=== PATIENT | female | born 1955 | race Caucasian/White ===

== ENCOUNTER 2017-01-14 10:22 | Observation (INO) | payer OTHER, MEDICAID ==
[2017-01-14 10:25] VITALS: BMI 37.5
[2017-01-14] MEDS ORDERED: DEMEROL INJ IVP ONE ×2 (10:41→11:53)
[2017-01-14] MEDS ORDERED: ZOFRAN INJ 4 MG VIAL IVP ONE (10:42)
--- NOTE | 2017-01-14 10:48 | DR.CP ---
HPI - Time Seen Time seen: 10:43 - PCP Primary Care Physician: JAX - Complaint Chief Complaint Doctor Comments: Patient complains of xiphoid chest pain with shortness of breath for the past 24 hours getting worst today. Patient states she has CAD and had stents placed 2005 and is a patient of Dr. Palafox in [place], [place]. states she has Demerol 50mg at home and Plavix 75mg but she did not take any today. 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 She has a cough and has nausea but denies fever, chills, vomiting of diarrhea. She denies headache or dizziness. Chief Complaint:: PT. C/O CHEST PAIN THAT BEGAN YESTERDAY. PT. STATES IT RADIATES TO LEFT SHOULDER BLADE AND LEFT ARM. PT. ALSO C/O SHORTNESS OF BREATH. PT. DESCRIBES THE PAIN HEAVINESS IN NATURE. - Reviewed Nurses Notes Review: Yes - Source History Provided: Patient - Mode of Arrival Mode of Arrival: Ambulatory - Timing Onset of Chief Complaint: 01/13/17 Came on: Gradually Pain: Present Now - Duration Duration: Intermittent How lon Duration: Hours - Location Location of Chest Pain: Chest Chest Pain Radiation Location: None - Context Onset: At rest Cardiac Risk Factors: Smoker PE Risk Factors: None History of: Similar pain in the past, Angioplasty Prehospital Care: None - Quality Quality: Sharp, Pressure like, Crushing - Severity Severity: Moderate - Modifying Factors Worsens: Breathing, Movement Impoves: Nothing - Associated Signs and Symptoms Associated Signs and Symptoms: Shortness of Breath. denies: None, Palpitations , Diaphoresis, Abdominal Pain, Nausea/Vomiting, Calf Pain/Swelling, Chest Rash, Other PMH - PMH Past Medical History: Yes Past Medical History: CHF, COPD, Coronary Artery Disease, Dyslipidemia, GERD, Hypertension, PUD Past Surgical History: Yes Surgical History: Cholecystectomy, Hysterectomy, Joint Replacement, Ortho Surgery - Family History History of Family Medical Conditions: Yes Family Medical History: Diabetes Mellitus, Cancer, [place], Coronary Artery Disease, Sudden Cardiac , Hypertension - Social History Does patient currently use any type of tobacco product: No Have you used tobacco products in the last 12 months: No Type of Tobacco Use: None Does any household member use tobacco: No Alcohol Use: Rarely Do you use any recreational Drugs:: No Lives With: Spouse Lives Where: Home - infectious screening In the last 2 months have you had wt loss of >10#?: NO Have you had fever, night sweats or hemotysis?: No Have you traveled outside the country in the last 6 months?: No Isolation: Standard ROS - Review of Systems Constitutional: No Symptoms Reported. negative: See HPI, Chills, Diaphoresis, Fever, Malaise, Weakness, Irritable, Fatigue, Loss of Appetite, Other Eyes: No Symptoms Reported ENTM: No Symptoms Reported. negative: See HPI, Ear Pain, Ear Discharge, Pulling on Ears, Hearing Loss, Nose Pain, Nose Discharge, Epistaxis, Nose Congestion, Mouth Pain, Mouth Swelling, Loose Teeth, Drooling, Throat Pain, Throat Swelling, Ear Foreign Body Respiratoy: No Symptoms Reported, Non-Productive Cough, Short of Breath. negative: See HPI, Productive Cough, Moist Cough, Dry Cough, Hacking Cough, Barking Cough, Brassy Cough, Orthopnea, Stridor, Wheezing, Hemoptysis, Other Cardiovascular: No Symptoms Reported, Chest Pain. negative: See HPI, Edema, Palpitations, Syncope, Cyanosis, Skin Mottling, Other Gastrointestinal/Abdominal: No Symptoms Reported, Nausea. negative: See HPI, Abdominal Pain, Constipation, Diarrhea, Vomiting, Food Intolerance, Other Genitourinary: No Symptoms Reported. negative: See HPI, Discharge, Dysuria, Frequency, Hematuria, Pain, Bleeding, Other Neurological: No Symptoms Reported. negative: See HPI, Anxiety, Depressed, Emotional Problems, Headache, Numbness, Paresthesia, Pre-existing Deficit, Seizure, Tingling, Tremors, Weakness, Dizziness, Problems Walking, Speech Problem, Other Musculoskeletal: No Symptoms Reported Integumentary: No Symptoms Reported Hematologic/Lymphatic: No Symptoms Reported Endocrine: No Symptoms Reported Psychiatric: No Symptoms Reported PE - Vitals Vitals: Temperature 97.7 F Pulse Rate [Apical] 76 Pulse Rate 85 Respiratory Rate 17 Blood Pressure [Right Arm] 124/82 Blood Pressure 139/70 O2 Sat by Pulse Oximetry 99 - General Limitations: No Limitations General Appearance: Alert, In Distress (moderate) - Head Head Exam: Normal Inspection, Atraumatic, Normocephalic - Eyes Eye exam: Normal Appearance, PERRL, EOMI. negative: Scleral Icterus, Conjunctival Injection, Nystagmus, Miosis, Mydrasis, Periorbital Swelling, Periorbital Tenderness, Other - ENT ENT Exam: Normal Exam, Normal Oropharynx, Normal External Ear Exam, Mucous Membranes Moist, TM's Normal Bilaterally - Chest Chest Inspection: Normal Inspection, Symmetric Chest Wall Rise - Respiratory Respiratory Exam: Normal Lung Sounds Bilat. negative: Accessory Muscle Use, Chest Wall Tenderness, Prolonged Expiratory Phase, Respiratory Distress, Stridor , Other Respiratory Exam: Bilateral Clear to Auscultation - Cardiovascular Cardiovascular Exam: Regular Rate, Normal Rhythm, Normal Heart Sounds. negative : Bradycardia, Tachycardia, Irregular Rhythm, Systolic Murmur, Diastolic Murmur , Rubs, Gallop, Clicks, JVD, +S1, +S2, +S3, +S4, Other Pulse: Normal Edema: Normal - Abdominal Exam Abdominal Exam: Normal Inspection, Normal Bowel Sounds, Soft. negative: Distention, Tenderness, Guarding, Rebound, Rigidity, Dimnished Bowel Sounds, Hyperactive Bowel Sounds, Hypoactive Bowel Sounds, Organomegaly, Trauma, Incision, Ascites, Mass, Bruit, Pulsatile Mass, Hernia, Other Abdominal Tenderness: negative: RUQ, RLQ, LUQ, LLQ, Epigastrium, Suprapubic, Diffuse, Mild, Moderate, Severe, Other - Extremities Extremities Exam: Normal Inspection, Full ROM, Normal Capillary Refill. negative: Tenderness, Edema, Joint Swelling, Calf Tenderness, Other - Back Back Exam: Normal Inspection, Full ROM. negative: Tenderness, (R) CVA Tenderness, (L) CVA Tenderness, Muscle Spasm, Paraspinal Tenderness, Vertebral Tenderness, Rashes, (R) Sciatic Notch Tenderness, (L) Sciatic Notch Tendern, (R ) Straight Leg Raise, (L) Straight Leg Raise, Other - Neurologic Neurological Exam: Alert, Oriented X3, CN II-XII Intact, Normal Gait, Reflexes Normal. negative: Motor Sensory Deficit, Other - Psychiatric Psychiatric Exam: Normal Affect, Normal Mood. negative: Depressed, Agitated, Anxious, Flat Affect, Manic, Homicidal Ideation, Suicidal Ideation, Other - Skin Skin Exam: Warm, Dry, Intact, Normal Color. negative: Rash, Cyanosis, Diaphoresis, Erythema, Pallor, Mottled, Other Course - Consultation Called: 12:07 Call Returned: 12:07 (Dr. Pope to admit) - Education/Counseling Education/Counseling: Patient, Family Educated On: Treatment, Diagnosis, Prognosis, Needs for Follow Up ROR - Labs Reviewed Laboratory Results Reviewed?: Yes (All labs and x-ray results reviewed and discussed with patient) Result Diagrams: 01/14/17 11:02 01/14/17 11:02 Laboratory: WBC 7.7 X10^3/uL (3.6-10.0) 01/14/17 11:02 RBC 5.15 X10^6/uL (3.5-5.4) 01/14/17 11:02 Hgb 13.9 g/dL (12.0-16.0) 01/14/17 11:02 Hct 41.9 % (36.0-47.0) 01/14/17 11:02 MCV 81.4 fL (80.0-100.0) 01/14/17 11:02 MCH 26.9 pg (27.0-34.0) L 01/14/17 11:02 MCHC 33.1 g/dL (33.0-35.0) 01/14/17 11:02 RDW 13.9 % (11.6-16.5) 01/14/17 11:02 Plt Count 160 X10^3/uL (150.0-450.0) 01/14/17 11:02 Plt Count Comment Adequate (ADEQUATE) 01/14/17 11:02 MPV 9.4 fL (7.4-11.0) 01/14/17 11:02 Neut % 54.9 % (42.0-75.0) 01/14/17 11:02 Lymph % 33.6 % (21.0-51.0) 01/14/17 11:02 [place] % 7.2 % (0.0-13.0) 01/14/17 11:02 Eos % 1.6 % (0.9-2.9) 01/14/17 11:02 Baso % 2.7 % (0.2-1.0) H 01/14/17 11:02 Neut # 4.2 x10^3/uL (2.2-4.8) 01/14/17 11:02 Lymph # 2.6 X10^3/uL (1.3-2.9) 01/14/17 11:02 [place] # 0.6 x10^3/uL (0.3-0.8) 01/14/17 11:02 Eos # 0.1 x10^3/uL (0.0-0.2) 01/14/17 11:02 Baso # 0.2 X10^3/uL (0.0-0.1) H 01/14/17 11:02 Absolute Nucleated RBC 0.1 /100WBC 01/14/17 11:02 Total Counted 100 01/14/17 11:02 Neutrophils % (Manual) 58 % (39-76) 01/14/17 11:02 Band Neutrophils % 2 % (0-10) 01/14/17 11:02 Lymphocytes % (Manual) 27 % (13-43) 01/14/17 11:02 Monocytes % (Manual) 9 % (4-9) 01/14/17 11:02 Eosinophils % (Manual) 2 % (0-6) 01/14/17 11:02 Metamyelocytes % 2 01/14/17 11:02 Plt Morphology Comment Normal (NORMAL) 01/14/17 11:02 RBC Morphology Normal (NORMAL) 01/14/17 11:02 INR Target Range - 01/14/17 11:02 INR 1.03 (0.8-1.3) 01/14/17 11:02 PTT 26.2 SECONDS (22.9-36.5) 01/14/17 11:02 PTT Comment - 01/14/17 11:02 D-Dimer 403 ng/mL (0-400) H* 01/14/17 11:02 Sodium 143 mmol/L (136-145) 01/14/17 11:02 Corrected Sodium TNP 01/14/17 11:02 Potassium 3.8 mmol/L (3.5-5.1) 01/14/17 11:02 Chloride 109 mmol/L (98-107) H 01/14/17 11:02 Carbon Dioxide 29.5 mmol/L (21-32) 01/14/17 11:02 BUN 7 mg/dL (7-18) 01/14/17 11:02 Creatinine 0.93 mg/dL (0.55-1.02) 01/14/17 11:02 Est GFR (MDRD) Af Amer > 60 (>60) 01/14/17 11:02 Est GFR (MDRD) Non-Af > 60 (>60) 01/14/17 11:02 Glucose 93 mg/dL (65-99) 01/14/17 11:02 Calcium 8.4 mg/dL (8.5-10.1) L 01/14/17 11:02 Corrected Calcium 9.0 mg/dL (8.5-10.1) 01/14/17 11:02 Magnesium 1.9 mg/dL (1.7-2.9) 01/14/17 11:02 Total Bilirubin 0.30 mg/dL (0.2-1.0) 01/14/17 11:02 AST 19 Units/L (15-37) 01/14/17 11:02 ALT 25 Units/L (12-78) 01/14/17 11:02 Alkaline Phosphatase 86 Units/L (46-116) 01/14/17 11:02 Creatine Kinase 70 Units/L (26-192) 01/14/17 11:02 CK-MB (CK-2) < 1.0 ng/mL (0-4.0) 01/14/17 11:02 CK/CKMB % Calc 1.4 % (<4) 01/14/17 11:02 Troponin I < 0.02 ng/mL (0-1.5) 01/14/17 11:02 Total Protein 6.7 g/dL (6.4-8.2) 01/14/17 11:02 Albumin 3.2 g/dL (3.4-5.0) L 01/14/17 11:02 Globulin 3.5 g/dL (2.5-4.5) 01/14/17 11:02 Albumin/Globulin Ratio 0.9 Ratio (1.1-2.1) L 01/14/17 11:02 - XRAY XRAY Interpreted by: Self (CXR: No acute cardiopulmonary changes noted) - EKG Rate: 77 [place]: Normal Rhythm: NSR Block: None Hypertrophy: None ST: Old, Ant, Infarct - Diagnosis Discharge Problem: Chest pain, rule out acute myocardial infarction, Coronary artery disease, History of AK (myocardial infarction), angina, COPD (chronic obstructive pulmonary disease) - Discharge Plan Disposition: ADMITTED INPATIENT Condition: Stable - Follow ups/Referrals Follow ups/Referrals: IGNACIO CAMARA [Primary Care Provider] - 3 days - Instructions
[2017-01-14] MEDS ORDERED: DEMEROL INJ ONE ×2 (10:54→11:58)
[2017-01-14] MEDS ORDERED: ZOFRAN INJ 4 MG VIAL ONE (10:54)
[2017-01-14] MEDS: NS 1000 ML 1,000 ML IV SCH ×2 (10:56→23:18)
[2017-01-14 11:12] LABS: BASOPHILS # (AUTO) 0.2 X10^3/uL (0.0-0.1); BASOPHILS % (AUTO) 2.7 % (0.2-1.0); EOSINOPHILS # (AUTO) 0.1 x10^3/uL (0.0-0.2); EOSINOPHILS % (AUTO) 1.6 % (0.9-2.9); HEMATOCRIT 41.9 % (36.0-47.0); HEMOGLOBIN 13.9 g/dL (12.0-16.0); LYMPHOCYTES # (AUTO) 2.6 X10^3/uL (1.3-2.9); LYMPHOCYTES % (AUTO) 33.6 % (21.0-51.0); MEAN CORPUSCULAR HEMOGLOBIN 26.9 pg (27.0-34.0); MEAN CORPUSCULAR HGB CONC 33.1 g/dL (33.0-35.0); MEAN CORPUSCULAR VOLUME 81.4 fL (80.0-100.0); MEAN PLATELET VOLUME 9.4 fL (7.4-11.0); MONOCYTES # (AUTO) 0.6 x10^3/uL (0.3-0.8); MONOCYTES % (AUTO) 7.2 % (0.0-13.0); NEUTROPHILS # (AUTO) 4.2 x10^3/uL (2.2-4.8); NEUTROPHILS % (AUTO) 54.9 % (42.0-75.0); PLATELET COUNT 160 X10^3/uL (150.0-450.0); RED BLOOD COUNT 5.15 X10^6/uL (3.5-5.4); RED CELL DISTRIBUTION WIDTH 13.9 % (11.6-16.5); WHITE BLOOD COUNT 7.7 X10^3/uL (3.6-10.0)
[2017-01-14 11:28] LABS: BAND NEUTROPHILS % 2 % (0-10); METAMYELOCYTES % 2; PLATELET MORPHOLOGY COMMENT NORMAL (NORMAL)
[2017-01-14 11:29] LABS: BLOOD UREA NITROGEN 7 mg/dL (7-18); CALCIUM 8.4 mg/dL (8.5-10.1); CARBON DIOXIDE 29.5 mmol/L (21-32); CHLORIDE 109 mmol/L (98-107); CREATININE 0.93 mg/dL (0.55-1.02); GLUCOSE 93 mg/dL (65-99); SODIUM 143 mmol/L (136-145); TROPONIN I < 0.02 ng/mL (0-1.5); eGFR BLACK RACES > 60 (>60); eGFR NON BLACK RACES > 60 (>60)
[2017-01-14 11:33] LABS: ALANINE AMINOTRANSFERASE 25 Units/L (12-78); ALBUMIN 3.2 g/dL (3.4-5.0); ALKALINE PHOSPHATASE 86 Units/L (46-116); ASPARTATE AMINO TRANSFERASE 19 Units/L (15-37); CREATINE KINASE 70 Units/L (26-192); CREATINE KINASE MB < 1.0 ng/mL (0-4.0); MAGNESIUM 1.9 mg/dL (1.7-2.9); TOTAL PROTEIN 6.7 g/dL (6.4-8.2)
[2017-01-14 11:36] LABS: CKMB % 1.4 % (<4)
[2017-01-14 11:48] LABS: D DIMER 403 ng/mL (0-400)
[2017-01-14] MEDS ORDERED: VENTOLIN or PROAIR HFA IN PRN (12:25)
[2017-01-14] MEDS ORDERED: PATIENT'S HOME MEDICATION (Albuterol Sulfate 2 PUFF) INH SCH (13:00)
--- NOTE | 2017-01-14 13:38 | RAD ---
HISTORY: Chest pain Study: Chest one view Comparison: April 27, 2016, April 25, 2016 Findings: The trachea is midline. The cardiac silhouette is unremarkable. The lungs are clear without focal infiltrate or effusion. The bony thorax is unremarkable. There is a port present on the left. IMPRESSION: 1. No acute cardiopulmonary disease. Reported By:
--- NOTE | 2017-01-14 15:16 | DR.H&P ---
H&P - History & Physical for Day of: H&P Date: 01/14/17 - Chief Complaint Chief Complaint: CHEST PAIN AND SHORTNESS OF BREATH - Allergies Allergies/Adverse Reactions: Allergies Allergy/AdvReac Type Severity Reaction Status Date / Time acetaminophen [From Esgic] Allergy Verified 01/14/17 14:10 amitriptyline Allergy Verified 01/14/17 14:10 amoxicillin [From Augmentin] Allergy Verified 01/14/17 14:10 atenolol [From Tenormin] Allergy Verified 01/14/17 14:10 bacitracin Allergy Verified 01/14/17 14:10 [From Neosporin ([id number])] butalbital [From Esgic] Allergy Verified 01/14/17 14:10 caffeine [From Esgic] Allergy Verified 01/14/17 14:10 cefadroxil [From Duricef] Allergy Verified 01/14/17 14:10 celecoxib [From Celebrex] Allergy Verified 01/14/17 14:10 cephalexin Allergy Verified 01/14/17 14:10 chlordiazepoxide Allergy Verified 01/14/17 14:10 [From Librax (with clidinium)] clavulanic acid Allergy Verified 01/14/17 14:10 [From Augmentin] clidinium Allergy Verified 01/14/17 14:10 [From Librax (with clidinium)] codeine Allergy Verified 01/14/17 14:10 dexpanthenol [From Ilopan] Allergy Verified 01/14/17 14:10 duloxetine [From Cymbalta] Allergy Verified 01/14/17 14:10 enoxaparin [From Lovenox] Allergy Verified 01/14/17 14:10 erythromycin base Allergy Verified 01/14/17 14:10 esomeprazole [From Nexium] Allergy Verified 01/14/17 14:10 eucalyptus Allergy Verified 01/14/17 14:10 fenoprofen Allergy Verified 01/14/17 14:10 fentanyl Allergy Verified 01/14/17 14:10 hydromorphone [From Dilaudid] Allergy Verified 01/14/17 14:10 ibuprofen [From Motrin] Allergy Verified 01/14/17 14:10 Iodine and Iodide Containing Allergy Verified 01/14/17 14:10 Produc ketorolac [From Toradol] Allergy Verified 01/14/17 14:10 lansoprazole [From Prevacid] Allergy Verified 01/14/17 14:10 latex Allergy Verified 01/14/17 14:10 levofloxacin [From Levaquin] Allergy Verified 01/14/17 14:10 meloxicam Allergy Verified 01/14/17 14:10 morphine Allergy Verified 01/14/17 14:10 nabumetone Allergy Verified 01/14/17 14:10 neomycin Allergy Verified 01/14/17 14:10 [From Neosporin ([id number])] omeprazole [From Prilosec] Allergy Verified 01/14/17 14:10 pantoprazole [From Protonix] Allergy Verified 01/14/17 14:10 paroxetine [From Paxil] Allergy Verified 01/14/17 14:10 penicillin G Allergy Verified 01/14/17 14:10 polymyxin B Allergy Verified 01/14/17 14:10 [From Neosporin ([id number])] propranolol Allergy Verified 01/14/17 14:10 rofecoxib [From Vioxx] Allergy Verified 01/14/17 14:10 sucralfate [From Carafate] Allergy Verified 01/14/17 14:10 terbinafine [From Lamisil] Allergy Verified 01/14/17 14:10 tigecycline [From Tygacil] Allergy Verified 01/14/17 14:10 topiramate [From Topamax] Allergy Verified 01/14/17 14:10 LODINE Allergy Uncoded 01/14/17 14:10 MAOLATE Allergy Uncoded 01/14/17 14:10 SULFAME Allergy Uncoded 01/14/17 14:10 - History of Present Illness History of Present Illness: MS. ALFREDO IS A 61 YEAR OLD FEMALE PATIENT OF . SHE PRESENTED TO THE ER WITH COMPLAINTS OF CHEST PAIN AND SHORTNESS OF BREATH FOR 24 HOURS PRIOR TO ARRIVING TO ER. PATIENT STATED THAT HER CHEST PAIN RADIATED TO THE LEFT ARM AND SHOULDER. PAIN WAS DESCRIBED PRESSURE AND SHARP. PATIENT ALSO COMPLAINED OF COUGH AND NAUSEA, BUT DENIED FEVER, CHILLS, VOMITING, OR DIARRHEA. ON EXAMINATION, PATIENT APPEARED TO BE IN MODERATE DISTRESS. ON ARRIVAL TO ER, VITALS WERE 97.7, 85, 17, 95, 139/70. LABS WERE OBTAINED AND WNL WITH EXCEPTION OF A D-DIMER OF 403, CHLORIDE 109, CALCIUM 8.4, ALBUMIN 3.2. CARDIAC PROFILE, EKG, AND CHEST XRAY WERE WNL. DUE TO PATIENT S CARDIAC HISTORY, WE ADMITTED PATIENT FOR FURTHER TREATMENT AND EVALUATION. PATIENT WILL BE STARTED ON IVF AND IV PAIN MEDICATION. WE WILL RECHECK LABS, CARDIAC PROFILES, AND EKGS AND WILL CONTINUE TO MONITOR PATIENT. - Past Medical History Past Medical History: Angina, Arthritis, CHF, COPD, Coronary Artery Disease, Dyslipidemia, GERD, Hypertension, PR, PUD Additional Medical History: LOW BACK PAIN, FIBROMYALGIA, CERVICALDISC DISORDER WITH RADICULOPATHY, EPITAXIS, SLEEP APNEA, MARANDA'S ESOPHAGITIS, RA, FIBROMYALGIA, - Past Surgical History Surgical History: Cholecystectomy, Hysterectomy, Joint Replacement, Ortho Surgery Additional Surgical History: HIP REPLACEMENT, EGD, HALO PROCEDURES X 3, COLONOSCOPY, CARDIAC CATHERIZATION (LAST AT [facility]) - Family History Family Medical History: Diabetes Mellitus, Cancer, PR, Coronary Artery Disease, Sudden Cardiac , Hypertension - Social History Does patient currently use any type of tobacco product: No Have you used tobacco products in the last 12 months: No Type of Tobacco Use: None Does any household member use tobacco: No Alcohol Use: Rarely Drug Use: None - Medications Home Medications: Albuterol Neb 2.5MG/ 3Ml [ALBUTEROL NEB 2.5MG/ 3ML *] 1 inh INH PRN PRN [History Confirmed 01/14/17] Hydrocodone-Acet 7.5 mg/325 mg [NORCO 7.5 MG/325 MG *] 1 tab PO Q4H PRN [History Confirmed 01/14/17] Pentazocine HCl/Naloxone HCl [Pentazocine-Naloxone Tablet] 1 tab PO QID [History Confirmed 01/14/17] - Review of Systems Constitutional: No Symptoms Reported. denies: See HPI, Fever, Chills, Sweats, Weakness, Malaise, Other Eyes: No Symptoms Reported. denies: See HPI, Pain, Vision Change, Conjunctivae Inflammation, Eyelid Inflammation, Redness, Other ENT: No Symptoms Reported. denies: See HPI, Ear Pain, Ear Discharge, Nose Pain , Nose Discharge, Nose Congestion, Mouth Pain, Mouth Swelling, Throat Pain, Throat Swelling, Other Respiratory: See HPI, Cough, Shortness of Breath Cardiovascular: Chest Pain, See HPI Gastrointestinal: Nausea. denies: See HPI, Vomiting, Abdominal Pain, Diarrhea, Constipation, Melena, Hematochezia, Other Genitourinary: No Symptoms Reported. denies: See HPI, Dysuria, Frequency, Incontinence, Hematuria, Retention, Other Musculoskeletal: See HPI, Shoulder Pain, Arm Pain Skin: No Symptoms Reported. denies: See HPI, Rash, Lesions, Jaundice, Bruising , Wound, Ecchymosis, Other Neurological: No Symptoms Reported. denies: See HPI, Weakness, Numbness, Incoordination, Change in Speech, Confusion, Seizures, Other - Physical Exam Vital Signs: Temperature 97.9 F Pulse Rate [Apical] 70 Respiratory Rate 20 Blood Pressure [Right Arm] 105/52 O2 Sat by Pulse Oximetry 95 Oriented: Normal Eyes: Normal. negative: Blurred Vision, Diplopia, Discharge, Pain, Redness, Photophobia, Other Ear: Normal. negative: Right, Left, Swelling, Ecchymosis, Hemotypanum, Abrasion , Laceration Nose: Normal. negative: Injected, Discharge, Blood, Other Throat: Normal. negative: Tonsillar Hypertrophy, Red, Exudate, Dry, Other Respiratory: Clear Throughout. negative: Diminished Throughout, Rhonchi Throughout, Rales Throughout, Wheezes Throughout, RUL Clear, RML Clear, RLL Clear, TERESA Clear, LML Clear, LLL Clear, RUL Diminished, RML Diminished, RLL Diminished, TERESA Diminished, LML Diminished, LLL Diminished, RUL Absent, RML Absent, RLL Absent, TERESA Absent, LML Absent, LLL Absent, RUL Rhonchi, RML Rhonchi , RLL Rhonchi, TERESA Rhonchi, LML Rhonchi, LLL Rhonchi, RUL Insp. Wheeze, RML Insp. Wheeze, RLL Insp. Wheeze, TERESA Insp.Wheeze, LML Insp.Wheeze, LLL Insp.Wheeze, RUL Exp. Wheeze, RML Exp. Wheeze, RLL Exp. Wheeze, TERESA Exp. Wheeze , LML Exp. Wheeze, LLL Exp. Wheeze, RUL Rales, RML Rales, RLL Rales, TERESA Rales, LML Rales, LLL Rales, RUL Rub, RML Rub, RLL Rub, TERESA Rub, LML Rub, LLL Rub, RUL Squeak, RML Squeak, RLL Squeak, TERESA Squeak, LML Squeak, LLL Squeak Cardiovascular: Normal. negative: Tachycardia, Bradycardia, Irregular, S3, S4, Systolic, Diastolic, Murmur, Edema, Other : Normal. negative: Dysuria, Hematuria, Frequency, Discharge, Testicular Pain , Bleeding, , Other Auscultation: Bowel Sounds: Normal. negative: Bruit, Absent, Increased, Decreased, High Pitched, Other Palpation: Normal. negative: Spleen Enlarged, Liver Enlarged, Mass Pulsatile, Other Tenderness: Normal. negative: Diffuse, RUQ, RLQ, LUQ, LLQ, Epigastric, Periumbilical, Suprapubic, Mild, Moderate, Severe, Rebound, Guarding, Rigidity, Other Skin: Normal. negative: Decreased Turgur, Rash, Papular, Macular, Maculopapular , Vesicular, Pustular, Petechial, Red, Tender, Hot, Diaphoresis, Wound, Bruising , Ecchymosis, Other Musculoskeletal: Normal. negative: Right, Left, Shoulder, Clavicle, Arm, Elbow , Forearm, Wrist, Hand, Hip, Thigh, Knee, Leg, Ankle, Foot, Back:Thoracic, Back: Lumbar, Back:Midline, Back:Paraspinous, Pelvis, Swelling, Tender, Deformity, Pulse Deficit, Motor Deficit, Sensory Deficit, Instability, Crepitance Psychiatric: Normal Mood Description: Calm Affect: Normal Speech Pattern: Clear - Assessment/Plan (1) Chest pain, rule out acute myocardial infarction Status: Acute Plan: CARDIAC PROFILE, EKG, CHEST XRAY, MONITOR LABS, DEMEROL PRN (2) Coronary artery disease Qualifiers: Coronary Disease-Associated Artery/Lesion type: [place] artery [place] vs. transplanted heart: [place] heart Associated angina: with stable angina Qualified Code(s): I25.118 - Atherosclerotic heart disease of [place] coronary artery with other forms of angina pectoris Status: Chronic Plan: CONTINUE HOME MEDICATION, CONTINUE TO MONITOR (3) COPD (chronic obstructive pulmonary disease) Qualifiers: COPD type: unspecified COPD Chronic bronchitis type: C Emphysema type: E Qualified Code(s): J44.9 - Chronic obstructive pulmonary disease, unspecified Status: Chronic Plan: CONTINUE HOME MEDICATIONS, CONTINEU TO MONITOR
[2017-01-14] MEDS: DEMEROL INJ IVP PRN ×2 (15:50→20:39)
[2017-01-14] MEDS: PROVENTIL NEB TX 0.083% 2.5MG/ 3ML NEB PRN (17:12)
[2017-01-14 17:22] LABS: CREATINE KINASE 61 Units/L (26-192); CREATINE KINASE MB < 1.0 ng/mL (0-4.0); TROPONIN I < 0.02 ng/mL (0-1.5)
[2017-01-14 17:25] LABS: CKMB % 1.6 % (<4)
[2017-01-14] MEDS: COREG TAB 3.125 MG PO SCH (20:37)
[2017-01-14] MEDS: ZANTAC PO SCH (20:38)
[2017-01-14] MEDS: ZOCOR TAB 20 MG PO SCH (20:38)
[2017-01-14] MEDS: LYRICA CAP 150 MG PO SCH (20:39)
[2017-01-14] MEDS: PULMICORT NEB TX 0.5 MG NEB SCH (20:46)
[2017-01-14] MEDS ORDERED: PATIENT'S HOME MEDICATION (Simvastatin [Simvastatin] 1 TAB) PO SCH (21:00)
[2017-01-14] MEDS ORDERED: ADVAIR DISKUS 250/50 IN SCH (21:00)
[2017-01-14] MEDS ORDERED: CARVEDILOL PO SCH (21:00)
[2017-01-14] MEDS ORDERED: PATIENT'S HOME MEDICATION (Fluticasone-Salmeterol 250/50 1 PUFF) INH SCH (21:00)
[2017-01-14 23:27] LABS: CKMB % 1.8 % (<4); CREATINE KINASE 56 Units/L (26-192); CREATINE KINASE MB < 1.0 ng/mL (0-4.0); TROPONIN I < 0.02 ng/mL (0-1.5)
[2017-01-15] MEDS: NS 1000 ML 1,000 ML IV SCH ×4 (01:21→20:16)
[2017-01-15] MEDS: DEMEROL INJ IVP PRN ×5 (01:39→20:27)
[2017-01-15 05:50] LABS: CHOL/HDL RATIO 2.9 (0.0-5.0)
[2017-01-15] MEDS: PULMICORT NEB TX 0.5 MG NEB SCH ×2 (08:08→20:52)
[2017-01-15] MEDS: PROVENTIL NEB TX 0.083% 2.5MG/ 3ML NEB PRN (08:09)
[2017-01-15 08:15] LABS: BASOPHILS # (AUTO) 0.1 X10^3/uL (0.0-0.1); EOSINOPHILS # (AUTO) 0.1 x10^3/uL (0.0-0.2); EOSINOPHILS % (AUTO) 1.8 % (0.9-2.9); HEMATOCRIT 39.9 % (36.0-47.0); LYMPHOCYTES # (AUTO) 2.8 X10^3/uL (1.3-2.9); MEAN CORPUSCULAR HEMOGLOBIN 26.6 pg (27.0-34.0); MEAN CORPUSCULAR HGB CONC 32.5 g/dL (33.0-35.0); MEAN CORPUSCULAR VOLUME 81.8 fL (80.0-100.0); MEAN PLATELET VOLUME 9.5 fL (7.4-11.0); MONOCYTES # (AUTO) 0.5 x10^3/uL (0.3-0.8); MONOCYTES % (AUTO) 6.8 % (0.0-13.0); NEUTROPHILS # (AUTO) 3.6 x10^3/uL (2.2-4.8); NEUTROPHILS % (AUTO) 50.4 % (42.0-75.0); PLATELET COUNT 157 X10^3/uL (150.0-450.0); RED BLOOD COUNT 4.88 X10^6/uL (3.5-5.4); WHITE BLOOD COUNT 7.1 X10^3/uL (3.6-10.0)
[2017-01-15 08:26] LABS: ALANINE AMINOTRANSFERASE 22 Units/L (12-78); ALBUMIN 2.7 g/dL (3.4-5.0); ALKALINE PHOSPHATASE 76 Units/L (46-116); ASPARTATE AMINO TRANSFERASE 17 Units/L (15-37); BLOOD UREA NITROGEN 4 mg/dL (7-18); CALCIUM 7.9 mg/dL (8.5-10.1); CARBON DIOXIDE 30.4 mmol/L (21-32); CHLORIDE 108 mmol/L (98-107); COR CA(FOR HYPOALB) 8.9 mg/dL (8.5-10.1); CREATININE 0.89 mg/dL (0.55-1.02); GLUCOSE 104 mg/dL (65-99); SODIUM 141 mmol/L (136-145); TOTAL PROTEIN 5.9 g/dL (6.4-8.2); eGFR BLACK RACES > 60 (>60); eGFR NON BLACK RACES > 60 (>60)
[2017-01-15] MEDS ORDERED: PATIENT'S HOME MEDICATION (Clopidogrel Bisulfate [Clopidogrel] 1 TAB) PO SCH (09:00)
[2017-01-15] MEDS: ZANTAC PO SCH ×2 (09:27→20:16)
[2017-01-15] MEDS: COREG TAB 3.125 MG PO SCH ×2 (09:27→20:17)
[2017-01-15] MEDS: LYRICA CAP 150 MG PO SCH ×2 (09:28→20:16)
[2017-01-15] MEDS: PLAVIX PO SCH (09:32)
[2017-01-15 10:41] LABS: CREATINE KINASE 53 Units/L (26-192); CREATINE KINASE MB < 1.0 ng/mL (0-4.0); TROPONIN I < 0.02 ng/mL (0-1.5)
[2017-01-15 10:48] LABS: CKMB % 1.9 % (<4)
[2017-01-15 12:05] LABS: CREATINE KINASE 51 Units/L (26-192); CREATINE KINASE MB < 1.0 ng/mL (0-4.0); TROPONIN I < 0.02 ng/mL (0-1.5)
--- NOTE | 2017-01-15 16:57 | PCM.PROG ---
Progress Note - Progress Note for Day of Date: 01/15/17 - Subjective Subjective: IS A PATIENT OF WHO WAS ADMITTED WITH CHEST YESTERDAY. SHE IS SITTING ON THE SIDE OF THE BED ON MORNING ROUNDS. SHE CONTINUES WITH CHEST PAIN AND SHORTNESS OF BREATH. LUNGS ARE CLEAR ON AUSCULTATION. VITALS THIS MORNING ARE 98.3, 76, 20, 94%, 112/57. LABS WERE OBTAINED AND REPORT A NORMAL CMP EXCEPT CARBON DIOXIDE 108, BUN 4, CALCIUM 7.9, ALBUMIN 2.7. WE WILL RECHECK LABS AND CHEST XRAY AND FOLLOW UP WITH PATIENT IN AM. - Past Medical Family Social History Past Med/Fam/Surg Hx: No changes since H&P Allergies: Allergies acetaminophen [From Esgic] Allergy (Verified 01/14/17 14:10) amitriptyline Allergy (Verified 01/14/17 14:10) amoxicillin [From Augmentin] Allergy (Verified 01/14/17 14:10) atenolol [From Tenormin] Allergy (Verified 01/14/17 14:10) bacitracin [From Neosporin ([id number])] Allergy (Verified 01/14/17 14:10) butalbital [From Esgic] Allergy (Verified 01/14/17 14:10) caffeine [From Esgic] Allergy (Verified 01/14/17 14:10) cefadroxil [From Duricef] Allergy (Verified 01/14/17 14:10) celecoxib [From Celebrex] Allergy (Verified 01/14/17 14:10) cephalexin Allergy (Verified 01/14/17 14:10) chlordiazepoxide [From Librax (with clidinium)] Allergy (Verified 01/14/17 14:10 ) clavulanic acid [From Augmentin] Allergy (Verified 01/14/17 14:10) clidinium [From Librax (with clidinium)] Allergy (Verified 01/14/17 14:10) codeine Allergy (Verified 01/14/17 14:10) dexpanthenol [From Ilopan] Allergy (Verified 01/14/17 14:10) duloxetine [From Cymbalta] Allergy (Verified 01/14/17 14:10) enoxaparin [From Lovenox] Allergy (Verified 01/14/17 14:10) erythromycin base Allergy (Verified 01/14/17 14:10) esomeprazole [From Nexium] Allergy (Verified 01/14/17 14:10) eucalyptus Allergy (Verified 01/14/17 14:10) fenoprofen Allergy (Verified 01/14/17 14:10) fentanyl Allergy (Verified 01/14/17 14:10) hydromorphone [From Dilaudid] Allergy (Verified 01/14/17 14:10) ibuprofen [From Motrin] Allergy (Verified 01/14/17 14:10) Iodine and Iodide Containing Produc Allergy (Verified 01/14/17 14:10) ketorolac [From Toradol] Allergy (Verified 01/14/17 14:10) lansoprazole [From Prevacid] Allergy (Verified 01/14/17 14:10) latex Allergy (Verified 01/14/17 14:10) levofloxacin [From Levaquin] Allergy (Verified 01/14/17 14:10) meloxicam Allergy (Verified 01/14/17 14:10) morphine Allergy (Verified 01/14/17 14:10) nabumetone Allergy (Verified 01/14/17 14:10) neomycin [From Neosporin ([id number])] Allergy (Verified 01/14/17 14:10) omeprazole [From Prilosec] Allergy (Verified 01/14/17 14:10) pantoprazole [From Protonix] Allergy (Verified 01/14/17 14:10) paroxetine [From Paxil] Allergy (Verified 01/14/17 14:10) penicillin G Allergy (Verified 01/14/17 14:10) polymyxin B [From Neosporin ([id number])] Allergy (Verified 01/14/17 14:10) propranolol Allergy (Verified 01/14/17 14:10) rofecoxib [From Vioxx] Allergy (Verified 01/14/17 14:10) sucralfate [From Carafate] Allergy (Verified 01/14/17 14:10) terbinafine [From Lamisil] Allergy (Verified 01/14/17 14:10) tigecycline [From Tygacil] Allergy (Verified 01/14/17 14:10) topiramate [From Topamax] Allergy (Verified 01/14/17 14:10) LODINE Allergy (Uncoded 01/14/17 14:10) MAOLATE Allergy (Uncoded 01/14/17 14:10) SULFAME Allergy (Uncoded 01/14/17 14:10) - Review of Systems ROS: No change since H&P - Vital Signs and I&O's Vital Signs: Temperature 98.4 F Pulse Rate [Right Brachial] 70 Pulse Rate [Apical] 70 Pulse Rate 80 Respiratory Rate 20 Blood Pressure [Right Arm] 94/54 O2 Sat by Pulse Oximetry 95 Intake and Output: Intake & Output 01/13/17 01/14/17 01/15/17 01/16/17 11:59 11:59 11:59 11:59 Intake Total 630 360 Output Total 1100 1300 Balance -470 -940 - Physical Exam Oriented: Normal Eyes: Normal. negative: Blurred Vision, Diplopia, Discharge, Pain, Redness, Photophobia, Other Ear: Normal. negative: Right, Left, Swelling, Ecchymosis, Hemotypanum, Abrasion , Laceration Nose: Normal. negative: Injected, Discharge, Blood, Other Throat: Normal. negative: Tonsillar Hypertrophy, Red, Exudate, Dry, Other Respiratory: Normal Cardiovascular: Normal. negative: Tachycardia, Bradycardia, Irregular, S3, S4, Systolic, Diastolic, Murmur, Edema, Other : Normal. negative: Dysuria, Hematuria, Frequency, Discharge, Testicular Pain , Bleeding, , Other Auscultation: Bowel Sounds: Normal. negative: Bruit, Absent, Increased, Decreased, High Pitched, Other Palpation: Normal Tenderness: Normal. negative: Diffuse, RUQ, RLQ, LUQ, LLQ, Epigastric, Periumbilical, Suprapubic, Mild, Moderate, Severe, Rebound, Guarding, Rigidity, Other Skin: Normal. negative: Decreased Turg[place], Rash, Papular, Macular, Maculopapular , Vesicular, Pustular, Petechial, Red, Tender, Hot, Diaphoresis, Wound, Bruising , Ecchymosis, Other Musculoskeletal: Normal. negative: Right, Left, Shoulder, Clavicle, Arm, Elbow , Forearm, Wrist, Hand, Hip, Thigh, Knee, Leg, Ankle, Foot, Back:Thoracic, Back: Lumbar, Back:Midline, Back:Paraspinous, Pelvis, Swelling, Tender, Deformity, Pulse Deficit, Motor Deficit, Sensory Deficit, Instability, Crepitance Psychiatric: Normal Mood Description: Calm Affect: Normal Speech Pattern: Clear - Laboratory and Diagnostics Result Diagrams: 01/15/17 08:06 01/15/17 08:06 Labs: 01/15/17 11:39 Sputum - Expectorated Sputum - Final Laboratory WBC 7.1 X10^3/uL (3.6-10.0) 01/15/17 08:06 RBC 4.88 X10^6/uL (3.5-5.4) 01/15/17 08:06 Hgb 13.0 g/dL (12.0-16.0) 01/15/17 08:06 Hct 39.9 % (36.0-47.0) 01/15/17 08:06 MCV 81.8 fL (80.0-100.0) 01/15/17 08:06 MCH 26.6 pg (27.0-34.0) L 01/15/17 08:06 MCHC 32.5 g/dL (33.0-35.0) L 01/15/17 08:06 RDW 14.0 % (11.6-16.5) 01/15/17 08:06 Plt Count 157 X10^3/uL (150.0-450.0) 01/15/17 08:06 Plt Count Comment Adequate (ADEQUATE) 01/14/17 11:02 MPV 9.5 fL (7.4-11.0) 01/15/17 08:06 Neut % 50.4 % (42.0-75.0) 01/15/17 08:06 Lymph % 39.0 % (21.0-51.0) 01/15/17 08:06 [place] % 6.8 % (0.0-13.0) 01/15/17 08:06 Eos % 1.8 % (0.9-2.9) 01/15/17 08:06 Baso % 2.0 % (0.2-1.0) H 01/15/17 08:06 Neut # 3.6 x10^3/uL (2.2-4.8) 01/15/17 08:06 Lymph # 2.8 X10^3/uL (1.3-2.9) 01/15/17 08:06 [place] # 0.5 x10^3/uL (0.3-0.8) 01/15/17 08:06 Eos # 0.1 x10^3/uL (0.0-0.2) 01/15/17 08:06 Baso # 0.1 X10^3/uL (0.0-0.1) 01/15/17 08:06 Absolute Nucleated RBC 0.0 /100WBC 01/15/17 08:06 Total Counted 100 01/14/17 11:02 Neutrophils % (Manual) 58 % (39-76) 01/14/17 11:02 Band Neutrophils % 2 % (0-10) 01/14/17 11:02 Lymphocytes % (Manual) 27 % (13-43) 01/14/17 11:02 Monocytes % (Manual) 9 % (4-9) 01/14/17 11:02 Eosinophils % (Manual) 2 % (0-6) 01/14/17 11:02 Metamyelocytes % 2 01/14/17 11:02 Plt Morphology Comment Normal (NORMAL) 01/14/17 11:02 RBC Morphology Normal (NORMAL) 01/14/17 11:02 INR Target Range - 01/14/17 11:02 INR 1.03 (0.8-1.3) 01/14/17 11:02 PTT 26.2 SECONDS (22.9-36.5) 01/14/17 11:02 PTT Comment - 01/14/17 11:02 D-Dimer 403 ng/mL (0-400) H* 01/14/17 11:02 Sodium 141 mmol/L (136-145) 01/15/17 08:06 Corrected Sodium TNP 01/15/17 08:06 Potassium 4.3 mmol/L (3.5-5.1) 01/15/17 08:06 Chloride 108 mmol/L (98-107) H 01/15/17 08:06 Carbon Dioxide 30.4 mmol/L (21-32) 01/15/17 08:06 BUN 4 mg/dL (7-18) L 01/15/17 08:06 Creatinine 0.89 mg/dL (0.55-1.02) 01/15/17 08:06 Est GFR (MDRD) Af Amer > 60 (>60) 01/15/17 08:06 Est GFR (MDRD) Non-Af > 60 (>60) 01/15/17 08:06 Glucose 104 mg/dL (65-99) H 01/15/17 08:06 Calcium 7.9 mg/dL (8.5-10.1) L 01/15/17 08:06 Corrected Calcium 8.9 mg/dL (8.5-10.1) 01/15/17 08:06 Magnesium 1.9 mg/dL (1.7-2.9) 01/14/17 11:02 Total Bilirubin 0.30 mg/dL (0.2-1.0) 01/15/17 08:06 AST 17 Units/L (15-37) 01/15/17 08:06 ALT 22 Units/L (12-78) 01/15/17 08:06 Alkaline Phosphatase 76 Units/L (46-116) 01/15/17 08:06 Creatine Kinase 51 Units/L (26-192) 01/15/17 11:38 CK-MB (CK-2) < 1.0 ng/mL (0-4.0) 01/15/17 11:38 CK/CKMB % Calc 2.0 % (<4) 01/15/17 11:38 Troponin I < 0.02 ng/mL (0-1.5) 01/15/17 11:38 Total Protein 5.9 g/dL (6.4-8.2) L 01/15/17 08:06 Albumin 2.7 g/dL (3.4-5.0) L 01/15/17 08:06 Globulin 3.2 g/dL (2.5-4.5) 01/15/17 08:06 Albumin/Globulin Ratio 0.8 Ratio (1.1-2.1) L 01/15/17 08:06 Triglycerides 95 mg/dL (0-150) 01/15/17 04:43 Cholesterol 153 mg/dL (0-200) 01/15/17 04:43 LDL Cholesterol, Calc 81 mg/dL (0-100) 01/15/17 04:43 HDL Cholesterol 53 mg/dL (40-60) 01/15/17 04:43 Cholesterol/HDL Ratio 2.9 (0.0-5.0) 01/15/17 04:43 - Plan (1) Chest pain, rule out acute myocardial infarction Status: Acute Plan: CARDIAC PROFILE, EKG, CHEST XRAY, MONITOR LABS, DEMEROL PRN (2) Coronary artery disease Status: Chronic Qualifiers: Coronary Disease-Associated Artery/Lesion type: [place] artery [place] vs. transplanted heart: [place] heart Associated angina: with stable angina Qualified Code(s): I25.118 - Atherosclerotic heart disease of [place] coronary artery with other forms of angina pectoris Plan: CONTINUE HOME MEDICATION, CONTINUE TO MONITOR (3) COPD (chronic obstructive pulmonary disease) Status: Chronic Qualifiers: COPD type: unspecified COPD Chronic bronchitis type: C Emphysema type: E Qualified Code(s): J44.9 - Chronic obstructive pulmonary disease, unspecified Plan: CONTINUE HOME MEDICATIONS, CONTINEU TO MONITOR
[2017-01-15 17:14] LABS: CREATINE KINASE 57 Units/L (26-192); CREATINE KINASE MB < 1.0 ng/mL (0-4.0); TROPONIN I < 0.02 ng/mL (0-1.5)
[2017-01-15 17:37] LABS: CKMB % 1.8 % (<4)
[2017-01-15] MEDS: ZOCOR TAB 20 MG PO SCH (20:16)
[2017-01-16] MEDS: DEMEROL INJ IVP PRN ×4 (00:43→13:18)
[2017-01-16] MEDS: NS 1000 ML 1,000 ML IV SCH ×2 (05:04→09:21)
[2017-01-16 05:42] LABS: ALANINE AMINOTRANSFERASE 22 Units/L (12-78); ALBUMIN 2.7 g/dL (3.4-5.0); ALKALINE PHOSPHATASE 76 Units/L (46-116); ASPARTATE AMINO TRANSFERASE 16 Units/L (15-37); BLOOD UREA NITROGEN 6 mg/dL (7-18); CALCIUM 7.7 mg/dL (8.5-10.1); CARBON DIOXIDE 28.7 mmol/L (21-32); CHLORIDE 106 mmol/L (98-107); COR CA(FOR HYPOALB) 8.7 mg/dL (8.5-10.1); CREATININE 0.74 mg/dL (0.55-1.02); GLUCOSE 84 mg/dL (65-99); SODIUM 141 mmol/L (136-145); TOTAL PROTEIN 5.9 g/dL (6.4-8.2); eGFR BLACK RACES > 60 (>60); eGFR NON BLACK RACES > 60 (>60)
[2017-01-16 06:14] LABS: BASOPHILS # (AUTO) 0.1 X10^3/uL (0.0-0.1); EOSINOPHILS # (AUTO) 0.1 x10^3/uL (0.0-0.2); EOSINOPHILS % (AUTO) 1.6 % (0.9-2.9); HEMATOCRIT 38.6 % (36.0-47.0); HEMOGLOBIN 12.7 g/dL (12.0-16.0); LYMPHOCYTES # (AUTO) 2.9 X10^3/uL (1.3-2.9); LYMPHOCYTES % (AUTO) 40.2 % (21.0-51.0); MEAN CORPUSCULAR HEMOGLOBIN 27.1 pg (27.0-34.0); MEAN CORPUSCULAR HGB CONC 32.9 g/dL (33.0-35.0); MEAN CORPUSCULAR VOLUME 82.3 fL (80.0-100.0); MONOCYTES # (AUTO) 0.6 x10^3/uL (0.3-0.8); MONOCYTES % (AUTO) 9.1 % (0.0-13.0); NEUTROPHILS # (AUTO) 3.4 x10^3/uL (2.2-4.8); NEUTROPHILS % (AUTO) 48.1 % (42.0-75.0); PLATELET COUNT 150 X10^3/uL (150.0-450.0); RED BLOOD COUNT 4.69 X10^6/uL (3.5-5.4); RED CELL DISTRIBUTION WIDTH 13.6 % (11.6-16.5); WHITE BLOOD COUNT 7.1 X10^3/uL (3.6-10.0)
--- NOTE | 2017-01-16 06:44 | RAD ---
AP Chest Indication: Chest pain Comparison: 01/14/2017 Findings: No change in positioning of left chest wall MediPort with its tip terminating within the upper SVC. The trachea is midline. The cardiac silhouette is unremarkable. The lungs are clear without focal infiltrate or effusion. The bony thorax is unremarkable. IMPRESSION: 1. No acute cardiopulmonary abnormality. Reported By:
[2017-01-16] MEDS: PULMICORT NEB TX 0.5 MG NEB SCH (08:40)
[2017-01-16] MEDS: COREG TAB 3.125 MG PO SCH (09:19)
[2017-01-16] MEDS: LYRICA CAP 150 MG PO SCH (09:19)
[2017-01-16] MEDS: PLAVIX PO SCH (09:20)
[2017-01-16] MEDS: ZANTAC PO SCH (09:20)
[2017-01-16 12:22] VITALS: BP 116/62
--- NOTE | 2017-01-16 13:15 | PCM.PROG ---
Progress Note - Progress Note for Day of Date: 01/16/17 - Subjective Subjective: chest pain, sob. patient is a 61-year-old white female who was admitted 2 days ago with chest pain. Patient had serial cardiac enzymes which were within normal limits. Patient continues to complain of chest pain this morning and has a history of 6 patient's medications as has her as is his is 6.coronary artery stents with last heart catheter in 2014. Discussed transfer to Dr. Tony Clark [place] for heart catheterization - Past Medical Family Social History Past Med/Fam/Surg Hx: No changes since H&P Allergies: Allergies acetaminophen [From Esgic] Allergy (Verified 01/14/17 14:10) amitriptyline Allergy (Verified 01/14/17 14:10) amoxicillin [From Augmentin] Allergy (Verified 01/14/17 14:10) atenolol [From Tenormin] Allergy (Verified 01/14/17 14:10) bacitracin [From Neosporin ([id number])] Allergy (Verified 01/14/17 14:10) butalbital [From Esgic] Allergy (Verified 01/14/17 14:10) caffeine [From Esgic] Allergy (Verified 01/14/17 14:10) cefadroxil [From Duricef] Allergy (Verified 01/14/17 14:10) celecoxib [From Celebrex] Allergy (Verified 01/14/17 14:10) cephalexin Allergy (Verified 01/14/17 14:10) chlordiazepoxide [From Librax (with clidinium)] Allergy (Verified 01/14/17 14:10 ) clavulanic acid [From Augmentin] Allergy (Verified 01/14/17 14:10) clidinium [From Librax (with clidinium)] Allergy (Verified 01/14/17 14:10) codeine Allergy (Verified 01/14/17 14:10) dexpanthenol [From Ilopan] Allergy (Verified 01/14/17 14:10) duloxetine [From Cymbalta] Allergy (Verified 01/14/17 14:10) enoxaparin [From Lovenox] Allergy (Verified 01/14/17 14:10) erythromycin base Allergy (Verified 01/14/17 14:10) esomeprazole [From Nexium] Allergy (Verified 01/14/17 14:10) eucalyptus Allergy (Verified 01/14/17 14:10) fenoprofen Allergy (Verified 01/14/17 14:10) fentanyl Allergy (Verified 01/14/17 14:10) hydromorphone [From Dilaudid] Allergy (Verified 01/14/17 14:10) ibuprofen [From Motrin] Allergy (Verified 01/14/17 14:10) Iodine and Iodide Containing Produc Allergy (Verified 01/14/17 14:10) ketorolac [From Toradol] Allergy (Verified 01/14/17 14:10) lansoprazole [From Prevacid] Allergy (Verified 01/14/17 14:10) latex Allergy (Verified 01/14/17 14:10) levofloxacin [From Levaquin] Allergy (Verified 01/14/17 14:10) meloxicam Allergy (Verified 01/14/17 14:10) morphine Allergy (Verified 01/14/17 14:10) nabumetone Allergy (Verified 01/14/17 14:10) neomycin [From Neosporin ([id number]-[id number])] Allergy (Verified 01/14/17 14:10) omeprazole [From Prilosec] Allergy (Verified 01/14/17 14:10) pantoprazole [From Protonix] Allergy (Verified 01/14/17 14:10) paroxetine [From Paxil] Allergy (Verified 01/14/17 14:10) penicillin G Allergy (Verified 01/14/17 14:10) polymyxin B [From Neosporin ([id number]-lgn-[id number])] Allergy (Verified 01/14/17 14:10) propranolol Allergy (Verified 01/14/17 14:10) rofecoxib [From Vioxx] Allergy (Verified 01/14/17 14:10) sucralfate [From Carafate] Allergy (Verified 01/14/17 14:10) terbinafine [From Lamisil] Allergy (Verified 01/14/17 14:10) tigecycline [From Tygacil] Allergy (Verified 01/14/17 14:10) topiramate [From Topamax] Allergy (Verified 01/14/17 14:10) LODINE Allergy (Uncoded 01/14/17 14:10) MAOLATE Allergy (Uncoded 01/14/17 14:10) SULFAME Allergy (Uncoded 01/14/17 14:10) - Review of Systems ROS: No change since H&P - Vital Signs and I&O's Vital Signs: Temperature 98.7 F Pulse Rate [Right Brachial] 82 Pulse Rate [Apical] 70 Pulse Rate 89 Respiratory Rate 20 Blood Pressure [Right Arm] 116/62 O2 Sat by Pulse Oximetry 96 Intake and Output: Intake & Output 01/14/17 01/15/17 01/16/17 01/17/17 11:59 11:59 11:59 11:59 Intake Total 630 1472 Output Total 1100 1800 Balance -470 -328 - Physical Exam Oriented: Normal Eyes: Normal Ear: Normal Nose: Normal Throat: Normal Respiratory: Diminished Cardiovascular: Normal : Normal Auscultation: Bowel Sounds: Normal Tenderness: Normal Skin: Normal Musculoskeletal: Normal, Back:Lumbar Psychiatric: Normal Mood Description: Calm Affect: Normal Speech Pattern: Clear, Appropriate - Laboratory and Diagnostics Result Diagrams: 01/16/17 04:15 01/16/17 04:15 Labs: 01/15/17 11:39 Sputum - Expectorated Sputum Sputum Culture - Preliminary 01/15/17 11:39 Sputum - Expectorated Sputum - Final Laboratory WBC 7.1 X10^3/uL (3.6-10.0) 01/16/17 04:15 RBC 4.69 X10^6/uL (3.5-5.4) 01/16/17 04:15 Hgb 12.7 g/dL (12.0-16.0) 01/16/17 04:15 Hct 38.6 % (36.0-47.0) 01/16/17 04:15 MCV 82.3 fL (80.0-100.0) 01/16/17 04:15 MCH 27.1 pg (27.0-34.0) 01/16/17 04:15 MCHC 32.9 g/dL (33.0-35.0) L 01/16/17 04:15 RDW 13.6 % (11.6-16.5) 01/16/17 04:15 Plt Count 150 X10^3/uL (150.0-450.0) 01/16/17 04:15 Plt Count Comment Adequate (ADEQUATE) 01/14/17 11:02 MPV 10.0 fL (7.4-11.0) 01/16/17 04:15 Neut % 48.1 % (42.0-75.0) 01/16/17 04:15 Lymph % 40.2 % (21.0-51.0) 01/16/17 04:15 [place] % 9.1 % (0.0-13.0) 01/16/17 04:15 Eos % 1.6 % (0.9-2.9) 01/16/17 04:15 Baso % 1.0 % (0.2-1.0) 01/16/17 04:15 Neut # 3.4 x10^3/uL (2.2-4.8) 01/16/17 04:15 Lymph # 2.9 X10^3/uL (1.3-2.9) 01/16/17 04:15 [place] # 0.6 x10^3/uL (0.3-0.8) 01/16/17 04:15 Eos # 0.1 x10^3/uL (0.0-0.2) 01/16/17 04:15 Baso # 0.1 X10^3/uL (0.0-0.1) 01/16/17 04:15 Absolute Nucleated RBC 0.2 /100WBC 01/16/17 04:15 Total Counted 100 01/14/17 11:02 Neutrophils % (Manual) 58 % (39-76) 01/14/17 11:02 Band Neutrophils % 2 % (0-10) 01/14/17 11:02 Lymphocytes % (Manual) 27 % (13-43) 01/14/17 11:02 Monocytes % (Manual) 9 % (4-9) 01/14/17 11:02 Eosinophils % (Manual) 2 % (0-6) 01/14/17 11:02 Metamyelocytes % 2 01/14/17 11:02 Plt Morphology Comment Normal (NORMAL) 01/14/17 11:02 RBC Morphology Normal (NORMAL) 01/14/17 11:02 INR Target Range - 01/14/17 11:02 INR 1.03 (0.8-1.3) 01/14/17 11:02 PTT 26.2 SECONDS (22.9-36.5) 01/14/17 11:02 PTT Comment - 01/14/17 11:02 D-Dimer 403 ng/mL (0-400) H* 01/14/17 11:02 Sodium 141 mmol/L (136-145) 01/16/17 04:15 Corrected Sodium TNP 01/16/17 04:15 Potassium 4.3 mmol/L (3.5-5.1) 01/16/17 04:15 Chloride 106 mmol/L (98-107) 01/16/17 04:15 Carbon Dioxide 28.7 mmol/L (21-32) 01/16/17 04:15 BUN 6 mg/dL (7-18) L 01/16/17 04:15 Creatinine 0.74 mg/dL (0.55-1.02) 01/16/17 04:15 Est GFR (MDRD) Af Amer > 60 (>60) 01/16/17 04:15 Est GFR (MDRD) Non-Af > 60 (>60) 01/16/17 04:15 Glucose 84 mg/dL (65-99) 01/16/17 04:15 Calcium 7.7 mg/dL (8.5-10.1) L 01/16/17 04:15 Corrected Calcium 8.7 mg/dL (8.5-10.1) 01/16/17 04:15 Magnesium 1.9 mg/dL (1.7-2.9) 01/14/17 11:02 Total Bilirubin 0.20 mg/dL (0.2-1.0) 01/16/17 04:15 AST 16 Units/L (15-37) 01/16/17 04:15 ALT 22 Units/L (12-78) 01/16/17 04:15 Alkaline Phosphatase 76 Units/L (46-116) 01/16/17 04:15 Creatine Kinase 57 Units/L (26-192) 01/15/17 16:30 CK-MB (CK-2) < 1.0 ng/mL (0-4.0) 01/15/17 16:30 CK/CKMB % Calc 1.8 % (<4) 01/15/17 16:30 Troponin I < 0.02 ng/mL (0-1.5) 01/15/17 16:30 Total Protein 5.9 g/dL (6.4-8.2) L 01/16/17 04:15 Albumin 2.7 g/dL (3.4-5.0) L 01/16/17 04:15 Globulin 3.2 g/dL (2.5-4.5) 01/16/17 04:15 Albumin/Globulin Ratio 0.8 Ratio (1.1-2.1) L 01/16/17 04:15 Triglycerides 95 mg/dL (0-150) 01/15/17 04:43 Cholesterol 153 mg/dL (0-200) 01/15/17 04:43 LDL Cholesterol, Calc 81 mg/dL (0-100) 01/15/17 04:43 HDL Cholesterol 53 mg/dL (40-60) 01/15/17 04:43 Cholesterol/HDL Ratio 2.9 (0.0-5.0) 01/15/17 04:43 - Plan (1) Chest pain, rule out acute myocardial infarction Status: Acute Plan: serial CE AND EKG'S. PLAN TO CONSULT CARDIOLOGY AT [facility] FOR HEART CATH (2) COPD (chronic obstructive pulmonary disease) Status: Chronic Qualifiers: COPD type: unspecified COPD Chronic bronchitis type: C Emphysema type: E Qualified Code(s): J44.9 - Chronic obstructive pulmonary disease, unspecified Plan: CONTINUE HOME MEDICATIONS, CONTINEU TO MONITOR (3) Coronary artery disease Status: Chronic Qualifiers: Coronary Disease-Associated Artery/Lesion type: [place] artery [place] vs. transplanted heart: [place] heart Associated angina: with stable angina Qualified Code(s): I25.118 - Atherosclerotic heart disease of [place] coronary artery with other forms of angina pectoris Plan: CONTINUE HOME MEDICATION, CONTINUE TO MONITOR (4) Arthritis Status: Chronic (5) CAD (coronary artery disease) Status: Chronic Qualifiers: Coronary Disease-Associated Artery/Lesion type: C [place] vs. transplanted heart: N Associated angina: A (6) Hypertension Status: Chronic Qualifiers: Hypertension type: essential hypertension Qualified Code(s): I10 - Essential (primary) hypertension
== END 2017-01-16 15:20 | disposition short-term general hospital (02) | DRG 313 ==
LOC: ER 10:27 → MED/SURG 12:08
PROVIDERS: ADMIT Internal Medicine; ATTEND Internal Medicine
DX: R07.2 Precordial pain (principal); R07.89 Other chest pain; I20.8 Other forms of angina pectoris; K22.70 Barrett's esophagus without dysplasia; R06.02 Shortness of breath; E78.2 Mixed hyperlipidemia; K21.9 Gastro-esophageal reflux disease without esophagitis; I10 Essential (primary) hypertension; J44.9 Chronic obstructive pulmonary disease, unspecified; Z86.73 Personal history of transient ischemic attack (TIA), and cerebral infarction without residual deficits; R94.31 Abnormal electrocardiogram [ECG] [EKG]; M13.89 Other specified arthritis, multiple sites; B96.1 Klebsiella pneumoniae [K. pneumoniae] as the cause of diseases classified elsewhere; Z79.1 Long term (current) use of non-steroidal anti-inflammatories (NSAID)
CPT/HCPCS: 36415; 71010; 80053; 80061; 82550; 82553; 83735; 84484; 85025; 85378; 85610; 85730; 87070; 87077; 87186; 87205; 93005; 93010; 94640; 94760; 96367; 96374; 96375; 99284; A4216; G0378; J2175; J2405; J7613; J7626